=== PATIENT | male | born 1980 | race Caucasian/White ===

== ENCOUNTER 2020-02-17 06:41 | Emergency (ER) | payer BC ==
[~2020-02-17] VITALS: Ht 180.3 cm; Wt 104.3 kg
[2020-02-17 07:27] LABS: ABSOLUTE BASOPHILS 0.1 thou/uL (0.0-0.2); ABSOLUTE EOSINOPHILS 0.2 thou/uL (0.0-0.7); HEMOGLOBIN 15.7 gm/dL (14.0-18.0); MPV 9.4 fl. (7.2-11.1); NUCLEATED RBCS 0 /100WBC; PLATELET COUNT* 170 thou/uL (150-400); WBC 7.5 thou/uL (4.0-11.0)
[2020-02-17 07:29] LABS: ABSOLUTE LYMPHOCYTES 2.4 thou/uL (0.8-5.3); ABSOLUTE MONOCYTES 0.7 thou/uL (0.0-1.2); ABSOLUTE NEUTROPHILS 4.1 thou/uL (1.6-8.1); EOSINOPHILS 3.1 %; HEMATOCRIT 43.8 % (42.0-52.0); LYMPHOCYTES 31.9 %; MCH 29.3 pg (26.0-34.0); MCHC 35.8 g/dL (28.0-37.0); MCV 81.8 fL (80.0-100.0); MONOCYTES 9.3 %; POLYS 54.7 %; RBC 5.36 mil/uL (4.50-6.00); RDW-CV 13.9 % (10.5-14.5)
[2020-02-17 07:34] LABS: CALCIUM 8.8 mg/dL (8.5-10.1); POTASSIUM 3.9 mmol/L (3.5-5.1)
[2020-02-17 07:38] LABS: ALBUMIN 3.9 g/dL (3.4-5.0); PROTIME 10.1 Seconds (9.20-11.50); TOTAL BILIRUBIN 0.3 mg/dL (<0.1-1.0); TOTAL PROTEIN 7.6 g/dL (6.4-8.2)
[2020-02-17] MEDS ORDERED: NORCO 5-325 TA1 EAC1 PO (07:54)
[2020-02-17 08:11] VITALS: BP 132/92
--- NOTE | 2020-02-17 12:51 | EKG ---
[place] [address] ELECTROCARDIOGRAM REPORT Name: SHAUNA MENJIVAR Room: [facility]#: [id number] Admission: 02/17/20 Attend Phys: Discharge: 02/17/20 Date of : 84 Date of Service: 02/17/20 0646 Report #: [id number] THIS REPORT FOR: //name// [facility] ED Test Date: 2020-02-17 Test Time: 06:46:15 Pat Name: SHAUNA MENJIVAR Department: Room: Gender: [employer]: [place] : 1980 Requested By: Maria Esther Bella Order Number: [id number] MD: Nick Ro Measurements Intervals [place] Rate: 92 P: 42 NV: 152 QRS: 74 QRSD: 105 T: 11 QT: 338 QTc: 419 Interpretive Statements Sinus rhythm Low voltage, extremity and precordial leads No previous ECG available for comparison Electronically Signed On 02-17-2020 12:50:24 CDT by Nick Ro [email or web address] <ELECTRONICALLY SIGNED> By: Nick Ro MD, [facility] 02/17/20 1250 Nick Ro MD, [facility] /EPI
== END 2020-02-17 08:12 | disposition home or self-care (01) ==
LOC: M.ERS 06:41
PROVIDERS: Personal Emergency Response Attendant
DX: R09.1 Pleurisy (principal); R07.89 Other chest pain; J45.909 Unspecified asthma, uncomplicated